=== PATIENT | male | born 1980 | race American Indian/Alaskan Native ===

== ENCOUNTER 2018-08-30 16:56 | Emergency (ER) | payer OTHER ==
[2018-08-30] MEDS ORDERED: NS 1,000 ML IV ONE ×2 (17:56→19:14)
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
[2018-08-30] MEDS ORDERED: KETOROLAC 30 MG/1 ML SDV IVP ONE (18:50)
[2018-08-30] MEDS ORDERED: KETOROLAC 15 MG/1 ML SDV ONE (19:01)
[2018-08-30 19:10] VITALS: BP 109/66
[2018-08-30] MEDS ORDERED: ONDANSETRON 4 MG/2 ML VIAL IVP ONE (19:14)
[2018-08-30] MEDS ORDERED: IOPAMIDOL (ISOVUE-300) 100 ML BTL ONE ×2 (19:23→19:36)
== END 2018-08-30 20:15 | disposition home or self-care (01) ==
DX: S33.6XXA Sprain of sacroiliac joint, initial encounter (principal); V49.60XA Unspecified car occupant injured in collision with unspecified motor vehicles in traffic accident, initial encounter; Y92.410 Unspecified street and highway as the place of occurrence of the external cause; Y93.9 Activity, unspecified; Y99.9 Unspecified external cause status
CPT/HCPCS: 82435-PO; 82565-PO; 82947-PO; 84132-PO; 84295-PO; 84520-PO; 85014-ER; 96374; J1885; Q9967